=== PATIENT | female | born 1970 ===

== ENCOUNTER 2018-06-19 15:13 | Emergency (ER) | payer OTHER ==
--- NOTE | 2018-06-19 15:25 | Emergency Department Report ---
Blank Doc - Documentation Documentation: This is a 47-year-old female that presents with generalized weakness, blurry v ision, body aches, and thirst. Was just diagnosed with hyperglyemia. This initial assessment/diagnostic orders/clinical plan/treatment(s) is/are subject to change based on patient's health status, clinical progression and re- assessment by fellow clinical providers in the ED. Further treatment and workup at subsequent clinical providers discretion. Patient/guardians urged not to elope from the ED as their condition may be serious if not clinically assessed and managed. Initial orders include: 1- Patient sent to MAIN ED for further evaluation and treatment 2- labs 3- UA
[2018-06-19] MEDS ORDERED: NACL 0.9% 1000 ML 1,000 ML IV ONE ×2 (15:51→16:32)
[2018-06-19] MEDS ORDERED: PEPCID IV ONE (15:56)
[2018-06-19] MEDS ORDERED: ZOFRAN IV ONE (15:56)
[2018-06-19 16:16] LABS: Basophils # (Auto) 0.1 K/mm3 (0.0-0.1); Basophils % (Auto) 0.8 % (0.0-1.8); Eosinophils # (Auto) 0.1 K/mm3 (0.0-0.4); Eosinophils % (Auto) 1.5 % (0.0-4.3); Hematocrit 37.9 % (30.3-42.9); Hemoglobin 12.9 gm/dl (10.1-14.3); Lymphocytes # (Auto) 1.3 K/mm3 (1.2-5.4); Lymphocytes % (Auto) 16.2 % (13.4-35.0); Mean Corpuscular HGB Conc 34 % (30-34); Mean Corpuscular Volume 96 fl (79-97); Monocytes # (Auto) 0.4 K/mm3 (0.0-0.8); Monocytes % (Auto) 4.7 % (0.0-7.3); Platelet Count 238 K/mm3 (140-440); Red Blood Count 3.97 M/mm3 (3.65-5.03)
[2018-06-19 16:29] LABS: Calcium 8.9 mg/dL (8.4-10.2)
[2018-06-19] MEDS ORDERED: HumuLIN R IV ONE (16:32)
[2018-06-19] MEDS ORDERED: NACL 0.9% 500 ML 500 ML IV ONE (17:52)
--- NOTE | 2018-06-19 19:03 | Emergency Department Report ---
ED General Adult HPI - General Chief complaint: Hyperglycemia Stated complaint: WEAK/BLURRED VISION/HEADACHE Time Seen by Provider: 06/19/18 15:23 Source: patient Mode of arrival: Ambulatory Limitations: No Limitations - History of Present Illness Initial comments: Patient is a 47-year-old female who states that over the past several weeks she has had some increased urinary frequency dry mouth and general weakness. Patient believes that her blood sugar may be elevated. She has not been checking her sugar because she has no glucometer. When I asked the patient has she been taking her medications she states she just ran out of her her ins ulin andstates that she hasn't been taking her metformin. When asked what dose of metformin dictation states she takes 1 pill daily I looked at her pill bottle and it appears that she misread the instructions and she is supposed to be on metformin 500 twice a day and not once daily. Patient denies any current nausea vomiting however she has stated that over the past several weeks she has had sev eral episodes of vomiting but again there is none currently. Patient denies any diarrhea cough cold congestion or dysuria. Severity scale (0 -10): 0 - Related Data Previous Rx's Medication Instructions Recorded Last Taken Type Detemir (Nf) [Levemir (Nf)] 16 units SUB-Q HS #1 bottle 06/19/18 Unknown Rx metFORMIN [Glucophage] 500 mg PO BID #60 tablet 06/19/18 Unknown Rx Allergies Allergy/AdvReac Type Severity Reaction Status Date / Time No Known Drug Allergies Allergy Unknown Verified 08/12/15 16:08 ED Review of Systems ROS: Stated complaint: WEAK/BLURRED VISION/HEADACHE Other details as noted in HPI Comment: All other systems reviewed and negative ED Past Medical Hx - Past Medical History Previous Medical History?: Yes Hx Diabetes: Yes (TYPE 2) Hx GERD: Yes - Surgical History Past Surgical History?: No - Social History Smoking Status: Current Every Day Smoker Substance Use Type: None - Medications Home Medications: Home Medications Medication Instructions Recorded Confirmed Last Taken Type Detemir (Nf) [Levemir (Nf)] 16 units SUB-Q HS #1 bottle 06/19/18 Unknown Rx metFORMIN [Glucophage] 500 mg PO BID #60 tablet 06/19/18 Unknown Rx ED Physical Exam - General Limitations: No Limitations General appearance: alert, in no apparent distress - Head Head exam: Present: atraumatic, normocephalic - Eye Eye exam: Present: normal appearance. Absent: PERRL, EOMI - ENT ENT exam: Present: mucous membranes moist - Neck Neck exam: Present: normal inspection - Respiratory Respiratory exam: Present: normal lung sounds bilaterally. Absent: respiratory distress, wheezes, rales, rhonchi, stridor - Cardiovascular Cardiovascular Exam: Present: regular rate, normal rhythm. Absent: systolic murmur, diastolic murmur, rubs, gallop - GI/Abdominal GI/Abdominal exam: Present: soft, normal bowel sounds. Absent: distended, tenderness, guarding, rebound, rigid - Extremities Exam Extremities exam: Present: normal inspection - Back Exam Back exam: Present: normal inspection - Neurological Exam Neurological exam: Present: alert, oriented X3 - Psychiatric Psychiatric exam: Present: normal affect, normal mood - Skin Skin exam: Present: warm, dry, intact, normal color. Absent: rash ED Course Vital Signs 06/19/18 06/19/18 15:24 17:49 Temperature 99.3 F Pulse Rate 74 85 Respiratory 20 19 Rate Blood Pressure 155/85 Blood Pressure 164/52 [Left] O2 Sat by Pulse 99 100 Oximetry ED Medical Decision Making - Lab Data Result diagrams: 06/19/18 15:52 06/19/18 15:52 Lab Results 06/19/18 06/19/18 06/19/18 Range/Units 15:52 15:52 15:52 WBC 7.7 (4.5-11.0) K/mm3 RBC 3.97 (3.65-5.03) M/mm3 Hgb 12.9 (10.1-14.3) gm/dl Hct 37.9 (30.3-42.9) % MCV 96 (79-97) fl MCH 33 H (28-32) pg MCHC 34 (30-34) % RDW 15.0 (13.2-15.2) % Plt Count 238 (140-440) K/mm3 Lymph % (Auto) 16.2 (13.4-35.0) % [place] % (Auto) 4.7 (0.0-7.3) % Eos % (Auto) 1.5 (0.0-4.3) % Baso % (Auto) 0.8 (0.0-1.8) % Lymph # 1.3 (1.2-5.4) K/mm3 [place] # 0.4 (0.0-0.8) K/mm3 Eos # 0.1 (0.0-0.4) K/mm3 Baso # 0.1 (0.0-0.1) K/mm3 Seg Neutrophils % 76.8 H (40.0-70.0) % Seg Neutrophils # 5.9 (1.8-7.7) K/mm3 VBG pH 7.376 (7.320-7.420) Sodium 131 L (137-145) mmol/L Potassium 4.5 (3.6-5.0) mmol/L Chloride 95.9 L (98-107) mmol/L Carbon Dioxide 24 (22-30) mmol/L Anion Gap 16 mmol/L BUN 15 (7-17) mg/dL Creatinine 1.0 (0.7-1.2) mg/dL Estimated GFR 60 ml/min BUN/Creatinine Ratio 15 % Glucose 454 H (65-100) mg/dL POC Glucose (70-105) Calcium 8.9 (8.4-10.2) mg/dL 06/19/18 Range/Units 17:35 WBC (4.5-11.0) K/mm3 RBC (3.65-5.03) M/mm3 Hgb (10.1-14.3) gm/dl Hct (30.3-42.9) % MCV (79-97) fl MCH (28-32) pg MCHC (30-34) % RDW (13.2-15.2) % Plt Count (140-440) K/mm3 Lymph % (Auto) (13.4-35.0) % [place] % (Auto) (0.0-7.3) % Eos % (Auto) (0.0-4.3) % Baso % (Auto) (0.0-1.8) % Lymph # (1.2-5.4) K/mm3 [place] # (0.0-0.8) K/mm3 Eos # (0.0-0.4) K/mm3 Baso # (0.0-0.1) K/mm3 Seg Neutrophils % (40.0-70.0) % Seg Neutrophils # (1.8-7.7) K/mm3 VBG pH (7.320-7.420) Sodium (137-145) mmol/L Potassium (3.6-5.0) mmol/L Chloride (98-107) mmol/L Carbon Dioxide (22-30) mmol/L Anion Gap mmol/L BUN (7-17) mg/dL Creatinine (0.7-1.2) mg/dL Estimated GFR ml/min BUN/Creatinine Ratio % Glucose (65-100) mg/dL POC Glucose 289 H (70-105) Calcium (8.4-10.2) mg/dL - Medical Decision Making Patient was hydrated her blood sugar has responded nicely to fluids and insulin. Patient to be discharged home. Given a refill of her insulin and also history continue her metformin twice daily. Patient also given prescription for glucometer. Critical care attestation.: If time is entered above; I have spent that time in minutes in the direct care of this critically ill patient, excluding procedure time. ED Disposition Clinical Impression: Hyperglycemia, Mild dehydration Disposition: DC-01 TO HOME OR SELFCARE Is pt being admited?: No Does the pt Need Aspirin: No Condition: Stable Instructions: Diabetic Hyperglycemia (ED) Prescriptions: metFORMIN [Glucophage] 500 mg PO BID #60 tablet Detemir (Nf) [Levemir (Nf)] 16 units SUB-Q HS #1 bottle Referrals: JAGJIT DE LEON MD [Primary Care Provider] - 3-5 Days Time of Disposition: 19:05
[2018-06-19 19:41] VITALS: BP 173/90
== END 2018-06-19 19:54 | disposition home or self-care (01) ==
LOC: ED 15:13
DX: E11.65 Type 2 diabetes mellitus with hyperglycemia (principal); E86.0 Dehydration; R11.10 Vomiting, unspecified; K21.9 Gastro-esophageal reflux disease without esophagitis; F17.200 Nicotine dependence, unspecified, uncomplicated; Z79.4 Long term (current) use of insulin
CPT/HCPCS: 36415; 80048; 82805; 82962; 85025; 96361; 96374; 96375; 99283; J2405; J7030; J1815